=== PATIENT | male | born 1950 | race Caucasian/White ===

== ENCOUNTER 2018-01-15 19:23 | Emergency (ER) | payer MEDICARE, OTHER ==
[2018-01-16] MEDS ORDERED: Tamsulosin HCl 0.4 MG CAP ONE (18:00)
== END 2018-01-16 18:07 | disposition home or self-care (01) ==
LOC: MADERS 19:23
DX: N40.1 Benign prostatic hyperplasia with lower urinary tract symptoms (principal); R39.11 Hesitancy of micturition; N30.90 Cystitis, unspecified without hematuria; I10 Essential (primary) hypertension; J44.9 Chronic obstructive pulmonary disease, unspecified; F17.210 Nicotine dependence, cigarettes, uncomplicated
CPT/HCPCS: 99283